=== PATIENT | female | born 1990 | race Caucasian/White ===

== ENCOUNTER 2018-08-02 10:54 | Emergency (ER) | payer MEDICAID ==
[~2018-08-02] VITALS: Ht 162.6 cm; Wt 74.7 kg
[2018-08-02 10:57] VITALS: BP 112/90; PULSE 80; RESP 18; Ht 162.6 cm; Wt 74.7 kg
[2018-08-02] MEDS ORDERED: ACETAMINOPHEN 500 MG TAB PO STA (11:34)
[2018-08-02] MEDS ORDERED: DIPHENHYDRAMINE 50 MG INJ IM ONE (12:00)
--- NOTE | 2018-08-02 12:13 | ERD ---
ER Documentation Chief Complaint Chief Complaint body itch x 5 days and headache today HPI 27y old 31 week female presents with history of headache and generalized body itching without rash for 5 days. States the headache is constant. States she has some numbness in her hands. Denies any vision problems, dizziness, gait instability. Denies sudden onset of headache. Denies abdominal pain, nausea, diarrhea. Denies allergies. Denies new soaps or detergents. Denies foods or medications. Denies medications. Denies past medical history. ROS All systems reviewed and are negative except as per history of present illness. Allergies Allergies: Coded Allergies: No Known Allergy (Unverified , 08/02/18) PMhx/Soc Medical and Surgical Hx: pt denies Medical Hx, pt denies Surgical Hx Hx Alcohol Use: No Hx Substance Use: No Hx Tobacco Use: No Smoking Status: Never smoker FmHx Family History: No diabetes, No coronary disease, No other Physical Exam Vitals Vital Signs Date Temp Pulse Resp B/P (MAP) Pulse Ox O2 O2 Flow FiO2 Time Delivery Rate 08/02/18 80 18 112/90 99 10:57 (97) Physical Exam General: Well developed, well nourished. No acute distress. Head: Atraumatic. No sinus tenderness to palpation. Eyes: No icterus, lesions, injection, or edema. Heart: RR w/o murmur, rubs, or gallops. Lungs: Clear to auscultation bilaterally w/o wheezes, crackles, rhonchi. Symmetric rise and fall. Equal breath sounds. Skin: No rash or other lesions noted. Color normal for ethnicity. Neuro: CN II through XII intact. Rapid alternating movement intact. No cerebellar or gait deficits. Strength and sensation intact. Alert and oriented x3. Psych: Normal mood and affect. Results 24 hrs Current Medications Medications Dose Sig/Maura Start Time Status Last (Trade) Ordered Route PRN Stop Time Admin Dose Reason Admin 1,000 mg ONCE STAT 08/02/18 DC Acetaminophen PO 11:34 (Tylenol 08/02/18 Tab) 11:46 50 mg ONCE ONCE 08/02/18 Diphenhydrami IM 12:00 ne HCl 08/02/18 (Benadryl) 12:01 Procedures/MDM MDM: Due to patient's gestational state of 31 weeks and complaint of generalized itching without any rash there is concern for gestational cholecystitis. Decision was made to send patient to L&D. Based on physical exam and patient history I have low suspicion for intracranial bleed, masses, or lesions. Departure Diagnosis: Primary Impression: Headache Headache type: unspecified Headache chronicity pattern: acute headache Intractability: not intractable Qualified Codes: R51 - Headache Additional Impression: Generalized pruritus Condition: Serious (Patient sent to L&D to r/o cholecstitis or other emergent condition.) YENI SHORT Aug 02, 2018 12:11
[2018-08-03] MEDS ORDERED: BEN25 PO (13:46)
== END 2018-08-02 12:05 | disposition home or self-care (01) ==
LOC: FTE 10:54
DX: O99.89 Other specified diseases and conditions complicating pregnancy, childbirth and the puerperium (principal); R51 Headache; L29.9 Pruritus, unspecified; O99.713 Diseases of the skin and subcutaneous tissue complicating pregnancy, third trimester; Z3A.31 31 weeks gestation of pregnancy
CPT/HCPCS: 99282

== ENCOUNTER 2018-08-03 12:32 | Emergency (ER) | payer MEDICAID ==
[~2018-08-03] VITALS: Wt 74.8 kg
[2018-08-03 12:38] VITALS: BP 118/75; PULSE 87; RESP 16
[2018-08-03] MEDS ORDERED: ACETAMINOPHEN 500 MG TAB PO STA (13:06)
[2018-08-03] MEDS ORDERED: DIPHENHYDRAMINE 50 MG INJ IM ONE (13:30)
[2018-08-03] MEDS ORDERED: BEN25 PO (13:46)
--- NOTE | 2018-08-03 13:49 | ERD ---
ER Documentation Chief Complaint Chief Complaint PRIDE, gen rash x6d; seen by L+D 08/02 and DC'd: return for same sx HPI 27-year-old female presents with some itching and rash for the last 6 days. She is approximately 34 weeks by dates. She said the symptoms for 6 days. She also has bitemporal headache. She was seen here yesterday and referred to labor and delivery and cleared for complications of and acalculus cholecystitis. Chart review shows bilateral is still pending. Patient denies any abdominal pain, bleeding. Denies dysuria, cough, shortness breath or chest pain. Patient represents for possible medications for her symptoms of itching. Patient denies any similar symptoms on previous . ROS All systems reviewed and are negative except as per history of present illness. Medications Home Meds Active Scripts Diphenhydramine Hcl* (Benadryl*) 25 Mg Cap, 25 MG PO Q6, #20 CAP Prov:BHAVANI ESTEVES MD 08/03/18 Allergies Allergies: Coded Allergies: No Known Allergy (Unverified , 08/03/18) PMhx/Soc Medical and Surgical Hx: pt denies Medical Hx, pt denies Surgical Hx Hx Alcohol Use: No Hx Substance Use: No Hx Tobacco Use: No Smoking Status: Never smoker FmHx Family History: No diabetes, No coronary disease, No other Physical Exam Vitals Vital Signs Date Temp Pulse Resp B/P (MAP) Pulse Ox O2 O2 Flow FiO2 Time Delivery Rate 08/03/18 97.9 87 16 118/75 98 12:38 (89) Physical Exam Const: No acute distress Head: Atraumatic Eyes: Normal Conjunctiva ENT: Normal External Ears, Nose and Mouth. Neck: Full range of motion. No meningismus. Resp: Clear to auscultation bilaterally Cardio: Regular rate and rhythm, no murmurs Abd: Soft, non tender, non distended. Normal bowel sounds Skin: No petechiae or purpura. Blanching scattered erythematous areas on the extremities primarily. No truncal rashes appreciated. Back: No midline or flank tenderness Ext: No cyanosis, or edema Neur: Awake and alert with normal reflexes. No appreciable focal neurologic deficits. Psych: Normal Mood and Affect Results 24 hrs Laboratory Tests Test 08/03/18 13:10 Urine Color YELLOW Urine Clarity SLIGHTLY CLOUDY Urine pH 6.0 Urine Specific [place] 1.019 Urine Ketones NEGATIVE mg/dL Urine Nitrite NEGATIVE mg/dL Urine Bilirubin NEGATIVE mg/dL Urine Urobilinogen 1+ mg/dL Urine Leukocyte Esterase NEGATIVE Tutu/ul Urine Microscopic RBC 0 /HPF Urine Microscopic WBC 1 /HPF Urine Squamous Epithelial Cells FEW /HPF Urine Bacteria FEW /HPF Urine Mucus FEW /HPF Urine Hemoglobin NEGATIVE mg/dL Urine Glucose NEGATIVE mg/dL Urine Total Protein NEGATIVE mg/dl Current Medications Medications Dose Sig/Maura Start Time Status Last (Trade) Ordered Route PRN Stop Time Admin Dose Reason Admin 500 mg ONCE STAT 08/03/18 DC 08/03/18 Acetaminophen PO 13:06 08/03/18 13:10 (Tylenol 13:07 Tab) 25 mg ONCE ONCE 08/03/18 DC 08/03/18 Diphenhydrami IM 13:30 08/03/18 13:10 ne HCl 13:31 (Benadryl) Procedures/MDM Urine shows no significant acute abnormal findings. Patient was given Benadryl 25 mg IM and Tylenol 650 mg by mouth for bitemporal headache. Patient presents with bitemporal headache suggestive of tension headache and nonspecific itching or rash of . No current signs or symptoms to suggest a calculus cholecystitis or complications of , preeclampsia, emergent cause of headache. Will treat with Tylenol, Benadryl, recommendations for OB follow-up and return precautions for bleeding, pain, vomiting, new worsening symptoms with primary care doctor. The patient was stable with no new complaints during the ER course. Clinically, there is no current evidence to suggest meningitis, sepsis, acute abdomen, pneumonia, stroke, acute coronary syndrome, pulmonary embolism, aortic dissection or any other emergent condition appearing to require further evaluation or hospitalization. Patient counseled regarding my diagnostic impression and care plan. Prior to discharge all questions answered. Pt agrees with treatment plan and understands strict return precautions. Pt is instructed to follow up with primary care provider within 24-48 hours. Precautionary instructions provided including instructions to return to the ER if not improving or for any worsening or changing symptoms or concerns. Departure Diagnosis: Primary Impression: Rash Additional Impressions: Generalized pruritus Headache Headache type: unspecified Headache chronicity pattern: unspecified pattern Intractability: not intractable Qualified Codes: R51 - Headache Condition: Stable Patient Instructions: Self-Care for Headaches, Dermatitis, Non-Specific Additional Instructions: Va al bryant doctor/ specialista para mas evaluacon en el proximo semana. posiblemente necesita autorizado de bryant doctor primario para specialista. Regresa para fiebre, o mas o nueva simptomas. BHAVANI ESTEVES MD Aug 03, 2018 13:49
== END 2018-08-03 14:00 | disposition home or self-care (01) ==
LOC: FTE 12:32
DX: O26.893 Other specified pregnancy related conditions, third trimester (principal); R51 Headache; Z3A.34 34 weeks gestation of pregnancy
CPT/HCPCS: 81001; 96372; J1200; Z7502; Z7610; 81003

== ENCOUNTER 2018-09-14 18:24 | Inpatient (IN) | payer MEDICAID ==
[~2018-09-14] VITALS: Ht 152.4 cm; Wt 76.7 kg
[~2018-09-14 18:24] MED LIST: BEN25 PO
[2018-09-14 19:59] VITALS: Ht 152.4 cm; Wt 76.7 kg
[2018-09-14 20:00] VITALS: BP 112/75; PULSE 80; RESP 16
[2018-09-14] MEDS ORDERED: LACTATED RINGER'S 1,000 ML IV PRN (20:02)
[2018-09-14] MEDS: LACTATED RINGER'S 1,000 ML IV SCH (20:21)
[2018-09-14] MEDS ORDERED: MISOPROSTOL 50 MCG CAPSULE VAG ONE (20:30)
[2018-09-14] MEDS ORDERED: OXYTOCIN 30 UNITS/LR 500 ML IV PRN (20:30)
[2018-09-14] MEDS ORDERED: BUTORPHANOL 2 MG INJ IV PRN (20:30)
[2018-09-14] MEDS ORDERED: METHYLERGONOVINE 0.2 MG INJ IM PRN (20:30)
[2018-09-14] MEDS ORDERED: OXYTOCIN 30 UNITS/LR 500 ML IV SCH (20:30)
[2018-09-14] MEDS ORDERED: LIDOCAINE 1% (MPF) 30 ML INJ INJ PRN (20:30)
[2018-09-14] MEDS ORDERED: IBUPROFEN 600 MG TAB PO PRN (20:30)
[2018-09-14] MEDS ORDERED: CARBOPROST 250 MCG INJ IM PRN (20:30)
[2018-09-14] MEDS ORDERED: MISOPROSTOL 50 MCG CAPSULE PO ONE (22:00)
[2018-09-15] MEDS: LACTATED RINGER'S 1,000 ML IV SCH ×3 (03:35→20:02)
[2018-09-15] MEDS ORDERED: MISOPROSTOL 50 MCG CAPSULE PO ONE (07:30)
--- NOTE | 2018-09-15 11:57 | PREAC ---
Date/Time of Note Date/Time of Note DATE: 09/15/18 TIME: 11:56 Anesthesia Eval and Record Evaluation Time Pre-Procedure Interview DATE: 09/15/18 TIME: 11:56 Age 27 Sex female NPO: 8 hrs Preoperative diagnosis labor pain Planned procedure labor epidural Past Medical History Past Medical History: None Surgery & Anesthesia Issues No known issue Meds Anticoagulation: No Beta Cecilio within 24 hr: No Reason Beta Cecilio not given: Pt. not on B-Cecilio Active Scripts Diphenhydramine Hcl* (Benadryl*) 25 Mg Cap, 25 MG PO Q6, #20 CAP Prov:BHAVANI ESTEVES MD 08/03/18 Current Medications Lactated Ringer's 1,000 ml @ 125 mls/hr Q8H IV Last administered on 09/15/18at 03:35; Admin Dose 125 MLS/HR; Start 09/14/18 at 20:02 Butorphanol Tartrate (Stadol) 2 mg Q2H PRN IV .PAIN; Start 09/14/18 at 20:30 Lidocaine (Xylocaine 1% (Mpf)) 30 ml ONCE PRN INJ .EPISIOTOMY; Start 09/14/18 at 20:30 Oxytocin/Lactated Ringer's 500 ml @ 500 mls/hr ONCE POST IV ; Start 09/14/18 at 20:30 Oxytocin/Lactated Ringer's 500 ml @ 125 mls/hr POST IV ; Start 09/14/18 at 20:30 Ibuprofen (Motrin) 600 mg ONCE PRN PO .PAIN 1-5; Start 09/14/18 at 20:30 Lactated Ringer's 1,000 ml @ 2,000 mls/hr Q30M PRN IV .ANESTHESIA Last administered on 09/15/18at 11:21; Admin Dose 2,000 MLS/HR; Start 09/14/18 at 20:02 Oxytocin/Lactated Ringer's 500 ml @ 0 mls/hr ONCE PRN IV .VAGINAL BLEEDING; Start 09/14/18 at 20:30 Methylergonovine Maleate (Methergine) 0.2 mg ONCE PRN IM .VAGINAL BLEEDING; Start 09/14/18 at 20:30 Carboprost Tromethamine (Hemabate) 250 mcg ONCE PRN IM .VAGINAL BLEEDING; Start 09/14/18 at 20:30 Misoprostol (Cytotec) 1,000 mcg ONCE PRN OR .VAGINAL BLEEDING; Start 09/14/18 at 20:30 Meds reviewed: Yes Allergies Coded Allergies: No Known Allergy (Unverified , 09/14/18) Allergies Reviewed: Yes Labs/Studies Labs Reviewed: Reviewed by anesthesiologist Result Diagram: 09/14/18 1950 Laboratory Tests 09/14/18 19:50 Blood Bank Test 09/14/18 19:50 Antibody Screen NEGATIVE Blood Type O POSITIVE Rh Immune Globulin Candidate NO test: Positive Pre-procedure Exam Last vitals Vital Signs Date Temp Pulse Resp B/P (MAP) Pulse Ox O2 O2 Flow FiO2 Time Delivery Rate 09/14/18 98.0 80 16 112/75 Room Air 20:00 (87) Airway: Adequate mouth opening, Adequate thyromental dist Mallampati: Mallampati III Teeth: Normal Lung: Normal Heart: Normal ASA Physical Status ASA physical status: 2 Emergency: None Planned Anesthetic Neuraxial: Epidural Planned Pain Management Epidural, Parenteral pain med, Other neuraxial med Pre-operative Attestations Prior to commencing anesthesia and surgery, the patient was re-evaluated, there was verification of: *The patient's identity *The results of appropriate recent lab work and preoperative vital signs *The above evaluation not changing prior to induction *Anesthetic plan, risk benefits, alternative and complications discussed with patient/family; questions answered; patient/family understands, accepts and wishes to proceed. ED KIRKLAND MD Sep 15, 2018 11:57
[2018-09-15] MEDS ORDERED: HYDROmorphONE 0.5 MG/0.5 ML SYG IV PRN ×2 (12:00)
[2018-09-15] MEDS ORDERED: HYDROCODONE/APAP (5/325) TAB PO PRN (12:00)
[2018-09-15] MEDS ORDERED: ZOLPIDEM 5 MG TAB PO PRN ×2 (12:00→15:00)
[2018-09-15] MEDS ORDERED: FENTAnyl 2MCG/ML-ROPIV 0.2% 100 ML BAG EPI SCH (12:00)
[2018-09-15] MEDS ORDERED: NALBUPHINE HCL (10 MG/1 ML) INJ IV PRN (12:00)
[2018-09-15] MEDS ORDERED: KETOROLAC 30 MG INJ IV PRN (12:00)
[2018-09-15] MEDS ORDERED: NALOXONE (0.4 MG/ML) INJ IV PRN (12:00)
[2018-09-15] MEDS ORDERED: ONDANSETRON 4 MG INJ IV PRN ×2 (12:00→15:00)
--- NOTE | 2018-09-15 12:15 | HP ---
Date/Time of Note Date/Time of Note DATE: 09/15/18 TIME: 12:12 OB - History Hx of Present Free Text/Dictation 27-year-old with single intrauterine at 38 weeks and 4 days with a MARINA of 09/25/2018 admitted for induction of labor for suspected cholestasis. She states good movement. She denies nausea, vomiting, shortness of breath, chest pain, headache, visual changes, vaginal bleeding or LOF. Chief Complaint: Admission for induction of labor for suspected cholestasis Estimated Due Date: Sep 25, 2018 : 4 Para: 2 Spontaneous : 1 Therapeutic : 0 Care: Good Care Ultrasounds: Normal mid trimester US Obstetrical Complications: None Past Family/Social History * Past Medical, Surgical, Family and Obstetric Histories reviewed from chart. Blood Type: O+ Rubella: immune RPR/VDRL: Negative GBS Status: Negative HBsAG: Negative OB Admission Exam Vital Signs Vital Signs Vital Signs Date Temp Pulse Resp B/P (MAP) Pulse Ox O2 O2 Flow FiO2 Time Delivery Rate 09/14/18 98.0 80 16 112/75 Room Air 20:00 (87) Physical Exam HEENT: WNL Heart: Rhythm Normal Lungs: Clear Abdomen: WNL Extremities: Normal Reflexes: Normal Cervical Dilatation: 1cm Effacement: 25% Station: -3 Membranes: Intact Heart Rate: 130's Accelerations: Accelerations Present Decelerations: No Decelerations Varibility: Moderate Contractions on Admission: >10 Minutes Apart Last 72 hours Lab Results CBC & BMP 09/14/18 19:50 OB Assessment/Plan Other plan: 27-year-old 4 para 2011 at 38 weeks and 4 days admitted for induction of labor for suspected cholestasis. - FHR: No sign of metabolic acidosis- Category I - Continuous EFM, toco - CBC, blood type and screen - Analgesia options with R/B/A discussed in detail with patient - Epidural per patient request - Please see the orders - O+/Rubella: Immune - GBS: negative Admission, procedures, expectations, risks and possible complications have been discussed in detail with the patient. Risk of vaginal delivery including but not limited to bleeding, infection, cervical laceration, placental retention, injury to fetus, blood transfusion, blood transfusion related infection, risk of anes thesia, adhesion, cervical laceration, episiotomy/laceration, possible delivery with risk of bleeding, infection, injury to other organs (bowel, bladder, ureter, vessels, nerves), injury to fetus, blood transfusion, blood transfusion related infection, risk of anesthesia, scar and hernia formation, needs for future , removal of uterus or any other indicated surgery discussed with the patient. She expressed understanding and repeats the risks. All of her questions were answered. She signed the informed consent. PHYSICIAN'S VERIFICATION OF INFORMED CONSENT The patient was counseled regarding the procedure, its indications, risks, potential complications and alternatives and any questions were answered. Consent was obtained. PLANNED PROCEDURE/TREATMENT: Vaginal delivery, episiotomy, repair of laceration possible delivery JIMMY ARREOLA Sep 15, 2018 12:15
[2018-09-15] MEDS ORDERED: FENTAnyl 2MCG/ML-ROPIV 0.2% 100 ML ONE (12:18)
[2018-09-15] MEDS: OXYTOCIN 30 UNITS/LR 500 ML IV SCH ×2 (14:26→19:07)
--- NOTE | 2018-09-15 14:57 | LDN ---
Date/Time of Note Date/Time of Note DATE: 09/15/18 TIME: 14:53 Delivery Summary 27-year-old with suspected cholestasis at 38 weeks and 4 days delivered a viable male over first-degree left anterior labia minora laceration. Nose and mouth suctioned. Rest of body delivered. Cord clamped and cut after stopping pulsation. Baby given to the nurse. Placenta delivered spontaneously and intact with three-vessel cord. Laceration repaired with 3-0 chromicSH needle. Patient tolerated procedure well. Time of delivery 13:59 Weight 7 pounds 6 ounces 8 9 at 1 minutes and 9 at 5 minutes EBL 200 mL Weeks of Gestation 38 weeks and 4 days Placenta Delivered: Spontaneously Meconium: none Episiotomy: No Estimated blood loss: 200 Sponge & Needle done & correct: Yes All needle counts correct: Yes Any foreign bodies felt in the: No Infant Delivery Information Sex Infant Sex: male Apgars 1 Minute: 9 5 Minute: 9 10 Minute: 10 Suctioning Nose & mouth suctioned at rosalba: Yes Umbilical Cord Umbilical cord with: 3 Vessels Cord presentations: no nuchal cord Cord Blood was obtained: Yes Mother & Baby Disposition Disposition Mom & Baby to Maternity; Good: Yes JIMMY ARREOLA Sep 15, 2018 14:57
[2018-09-15] MEDS ORDERED: MISOPROSTOL 200 MCG TAB PR PRN (15:00)
[2018-09-15] MEDS ORDERED: DIPHENHYDRAMINE 50 MG INJ IV PRN (15:00)
[2018-09-15] MEDS ORDERED: OXYTOCIN 30 UNITS/LR 500 ML IV PRN (15:00)
[2018-09-15] MEDS ORDERED: CARBOPROST 250 MCG INJ IM PRN (15:00)
[2018-09-15] MEDS ORDERED: METHYLERGONOVINE 0.2 MG INJ IM PRN (15:00)
[2018-09-15] MEDS ORDERED: DIBUCAINE 1% 30 GM OINT TOP PRN (15:00)
[2018-09-15] MEDS ORDERED: OXYCODONE/ASPIRIN (4.88/325) TAB PO PRN (15:00)
[2018-09-15] MEDS ORDERED: ACETAMINOPHEN 325 MG TAB PO PRN (15:00)
[2018-09-15] MEDS ORDERED: SENNA/DOCUSATE NA (8.6MG/50MG) TAB PO PRN (15:00)
[2018-09-15] MEDS ORDERED: LANOLIN HPA 1 PKT TOP PRN (15:00)
[2018-09-15] MEDS: MISOPROSTOL 200 MCG TAB PR PRN ×2 (16:01→16:02)
[2018-09-15] MEDS: IBUPROFEN 600 MG TAB PO SCH (20:03)
--- NOTE | 2018-09-15 20:10 | NUR ---
Patient came via w/c holding the Baby, L/D nurse assiited Patient in the bathroom, voided 200ml, 2nd time, assiited Patient back to bed, with L/.D RN checked pT'S fundus firm. Vitals with in normal, low grade temperature noted at 99.8 F, encouraged to drink plenty of water as tolerated, will continue to monitor the Patient
[2018-09-15 20:20] VITALS: BP 130/80; PULSE 86; RESP 18
[2018-09-15] MEDS: LACTATED RINGER'S 1,000 ML IV* SCH ×3 (20:48→23:08)
[2018-09-15] MEDS: DEXTROSE 5%-LR 1,000 ML IV SCH ×2 (20:48→22:49)
[2018-09-15] MEDS ORDERED: hydrOXYzine HCL 10 MG TAB GTB SCH (21:00)
[2018-09-15] MEDS: WITCH HAZEL/GLYCERIN PAD PR PRN (21:47)
[2018-09-15] MEDS: BENZOCAINE 20% 56 ML SPRAY TOP PRN (21:47)
[2018-09-15] MEDS: URSODIOL 300 MG CAP PO SCH (21:47)
[2018-09-15 22:00] VITALS: BP 116/70; PULSE 100; RESP 18
[2018-09-16 00:30] VITALS: BP 116/78; PULSE 88; RESP 19
[2018-09-16] MEDS: IBUPROFEN 600 MG TAB PO SCH ×4 (01:38→17:27)
[2018-09-16 01:50] VITALS: BP 109/63; RESP 18
[2018-09-16 04:10] VITALS: BP 118/70; PULSE 88; RESP 18
--- NOTE | 2018-09-16 05:30 | NUR ---
eoss: Patient vital signs with in normal, afebrile with 98.8 F, DENIES PAIN, , bonding with the Baby , will continue plan of care
[2018-09-16] MEDS: DEXTROSE 5%-LR 1,000 ML IV SCH ×2 (06:49→14:49)
[2018-09-16 08:45] VITALS: BP 118/71; PULSE 88; RESP 16
[2018-09-16] MEDS: URSODIOL 300 MG CAP PO SCH ×3 (09:06→21:26)
--- NOTE | 2018-09-16 12:12 | PN ---
Date/Time of Note Date/Time of Note DATE: 09/16/18 TIME: 12:10 OB Subjective Subjective Subjective Reports decreased vaginal bleeding. Denies any shortness of breath, denies any chest pain, no dizziness, no light headedness.. Ambulating. Breast-feeding. Denies any complaint. Denies any leg pain. OB Objective Objective Objective Appearance: Alert and oriented x4 does not appear to be in any acute distress. Breast: No evidence of mastitis or fissure, no evidence of engorgement Abdomen: Soft, fundus palpable and nontender below the umbilicus Extremities: No calf tenderness, no click no edema no cord palpable VS - Last 72 Hours, by Label Date Temp Pulse Resp B/P (MAP) Pulse Ox O2 O2 Flow FiO2 Time Delivery Rate 09/16/18 98.5 88 16 118/71 Room Air 08:45 (87) 09/16/18 98.8 88 18 118/70 Room Air 04:10 (86) 09/16/18 99.4 18 109/63 Room Air 01:50 (78) 09/16/18 100.2 88 19 116/78 Room Air 00:30 (91) 09/15/18 99.6 100 18 116/70 Room Air 22:00 (85) 09/15/18 99.0 86 18 130/80 Room Air 20:20 (97) 09/14/18 98.0 80 16 112/75 Room Air 20:00 (87) Laboratory Tests Test 09/16/18 06:56 White Blood Count 8.2 # Red Blood Count 3.22 #L Hemoglobin 9.5 L Hematocrit 29.2 L Mean Corpuscular Volume 90.7 Mean Corpuscular Hemoglobin 29.5 Mean Corpuscular Hemoglobin Concent 32.5 Red Cell Distribution Width 13.2 Platelet Count 146 # Mean Platelet Volume 12.6 H Immature Granulocytes % 1.000 H Neutrophils % 72.8 Lymphocytes % 19.9 Monocytes % 5.5 Eosinophils % 0.6 Basophils % 0.2 Nucleated Red Blood Cells % 0.0 Immature Granulocytes # 0.080 H Neutrophils # 6.0 Lymphocytes # 1.6 Monocytes # 0.5 Eosinophils # 0.1 Basophils # 0.0 Nucleated Red Blood Cells # 0.0 OB Assessment/Plan Other Assessment: day #1 post Anemia, , likely under estimated blood loss, asymptomatic Doing well Continue routine care Continue vitamin and iron Anticipate DC home tomorrow MARLEN SHELLEY MD Sep 16, 2018 12:12
[2018-09-16] MEDS: LACTATED RINGER'S 1,000 ML IV* SCH (14:49)
[2018-09-16 15:40] VITALS: BP 112/63; PULSE 78; RESP 16
--- NOTE | 2018-09-16 17:43 | NUR ---
E.O.S.S. PATIENT IS STABLE. FUNDUS IS FIRM, LOCHIA IS SMALL, AMBULATING, VOIDING OK, BONDING WITH THE BABY, WELL, MOVING TOWARD OUTCOMES.
[2018-09-16 20:20] VITALS: BP 119/69; PULSE 88; RESP 18
[2018-09-17 04:39] VITALS: BP 122/78; PULSE 90; RESP 18
--- NOTE | 2018-09-17 05:24 | NUR ---
eoss: Patient stable, bonding, the , may going home today with the Baby
[2018-09-17] MEDS: IBUPROFEN 600 MG TAB PO SCH ×3 (05:35→12:20)
[2018-09-17] MEDS: WITCH HAZEL/GLYCERIN PAD PR PRN ×2 (05:35→13:48)
[2018-09-17 08:30] VITALS: BP 109/74; PULSE 85; RESP 18
[2018-09-17] MEDS ORDERED: DIPHTH/TET/ACEL PERTUSS (ADULT) 0.5 ML VIAL IM* ONE (09:00)
[2018-09-17] MEDS ORDERED: MEASLES,MUMPS,RUBELLA VACCINE INJ SC* ONE (09:00)
[2018-09-17] MEDS: URSODIOL 300 MG CAP PO SCH ×2 (09:19→12:20)
--- NOTE | 2018-09-17 13:30 | PAC ---
Date/Time of Note Date/Time of Note DATE: 09/17/18 TIME: 13:30 Post-Anesthesia Notes Post-Anesthesia Note Last documented vital signs Vital Signs Date Temp Pulse Resp B/P (MAP) Pulse Ox O2 O2 Flow FiO2 Time Delivery Rate 09/17/18 97.8 85 18 109/74 Room Air 08:30 (86) Activity: WNL Respiratory function: WNL Cardiovascular function: WNL Mental status: Baseline Pain reasonably controlled: Yes Hydration appropriate: Yes Nausea/Vomiting absent: Yes ED KIRKLAND MD Sep 17, 2018 13:30
--- NOTE | 2018-09-17 13:46 | PD.PPDC ---
[employer] Discharge Instruction Diagnosis [id number] Final Diagnosis: Aexld9m s/p cholestasis Condition [id number] Patient Condition: [id number] Stable Diet [id number] Diet: Xmetj1f Resume Regular Diet Activity/Restrictions [id number] Activity: Oikem4n May Shower [id number] Restrictions: [id number] No Lifting No Sexual Activity Nothing in the Vagina No Rafael Gonzalez No Tampons, douche Follow-up Follow-up with Physician: Week/Weeks Return to clinic for [id number] [employer] Instructions: Ylxmo3d Fever greater than 101 Chills Worsening abdominal pain Excessive Vaginal Bleeding More than 2 pads per hour Unable to tolerate diet [id number] OB Instructions: Sozgn1l Breast Tenderness Depression Blurried Vision Headache ZHANNA GIBBS MD Sep 17, 2018 13:46
[2018-09-17] MEDS: BENZOCAINE 20% 56 ML SPRAY TOP PRN (13:48)
--- NOTE | 2018-09-17 13:50 | DS ---
Date/Time of Note Date/Time of Note DATE: 09/17/18 TIME: 13:48 Obstetrical Discharge Record Final Diagnosis Final Diagnosis: Term delivered Other Final Diagnosis cholestasis Vaginal Delivery Obstetrical Delivery: Spontaneous, Laceration, Repaired Complications Other (cholestasis) Induction: Yes Rupture of Membranes: No Condition on Discharge Physical Assessment Last Vitals: vss afebrile Voiding: Yes Bowel Movement: Yes Breast: Soft, non-tender Fundus: Firm Abdomen and Incision: n/a Episiotomy: n/a Calf Tenderness: No Patient Condition: Stable ZHANNA GIBBS MD Sep 17, 2018 13:50
--- NOTE | 2018-09-17 14:30 | NUR ---
DISCHARGE NOTE: Patient's vital signs stable. Bonding well with baby. Going home with baby. FOB here to take them home. Teaching done. All questions answered. Patient already scheduled a follow up appointment with Dr. Griffith. No c/o at this time.
== END 2018-09-17 14:30 | disposition home or self-care (01) | DRG 805 ==
LOC: L-D 18:24 → PP1 09-15 20:10 → EDSTATUS 09-28 18:22
PROVIDERS: ADMIT Obstetrics & Gynecology; ATTEND Obstetrics & Gynecology
PROC: 10E0XZZ Delivery of Products of Conception, External Approach (ICD-10-PCS; principal; 2018-09-15)
PROC: 0HQ9XZZ Repair Perineum Skin, External Approach (ICD-10-PCS; 2018-09-15)
PROC: 3E0P7VZ Introduction of Hormone into Female Reproductive, Via Natural or Artificial Opening (ICD-10-PCS; 2018-09-15)
DX: O26.62 Liver and biliary tract disorders in childbirth (principal); K83.1 Obstruction of bile duct; Z37.0 Single live birth; O70.0 First degree perineal laceration during delivery; O90.81 Anemia of the puerperium; D64.9 Anemia, unspecified; Z3A.38 38 weeks gestation of pregnancy; Z23 Encounter for immunization
CPT/HCPCS: 62319; 85025; 85610; 85730; 86592; 86850; 86900; 86901; 90715; J2210; J2590; J3010; J7120; J7121